=== PATIENT | female | born 1965 | race Caucasian/White ===

== ENCOUNTER 2017-06-22 07:59 | Observation (INO) | payer OTHER ==
[2017-06-22] VITALS (10 sets, daily range): BP systolic 118–163; BP diastolic 67–99; PULSE 63–82; RESP 16–21; Ht 157.5 cm; Wt 73.0 kg
[~2017-06-22] VITALS: Ht 157.5 cm; Wt 73.0 kg
[2017-06-22] MEDS: SOD CHLORIDE 0.9% 1,000 ML IV SCH ×4 (06:00→21:37)
[~2017-06-22 07:59] MED LIST: CEFAZOLIN 2 GM/50 ML (PMX) 50 ML IVPB SCH
[2017-06-22] MEDS ORDERED: OMEP20CA16 PO (09:21)
[2017-06-22] MEDS ORDERED: TIOT18CA INHALATION (09:21)
[2017-06-22] MEDS ORDERED: FERR256T PO (09:22)
[2017-06-22] MEDS ORDERED: ISOSULFAN BLUE 1% 5 ML INJ SC ONE (09:50)
[2017-06-22] MEDS ORDERED: BUPIVACAINE 0.25% (MPF) 30 ML INJ ONE ×3 (09:50→11:31)
[2017-06-22] MEDS ORDERED: FENTAnyl 50 MCG/ML VIAL ONE (09:59)
[2017-06-22] MEDS ORDERED: PROPOFOL 20 ML ONE ×2 (09:59→10:58)
[2017-06-22] MEDS ORDERED: MIDAZOLAM 1 MG/ML 2 ML INJ ONE (09:59)
[2017-06-22] MEDS ORDERED: DEXAMETHASONE 4 MG/ML 1 ML INJ ONE (09:59)
[2017-06-22] MEDS ORDERED: METOCLOPRAMIDE 10 MG INJ ONE (09:59)
[2017-06-22] MEDS ORDERED: DIPHENHYDRAMINE 50 MG INJ IV PRN (10:30)
[2017-06-22] MEDS ORDERED: OXYCODONE/ACETAMINOPHEN (5/325) TAB PO PRN ×2 (10:30)
[2017-06-22] MEDS ORDERED: HYDROmorphONE (0.2 MG/ML) 10ML SYG IV PRN ×3 (10:30)
[2017-06-22] MEDS ORDERED: METOCLOPRAMIDE 10 MG INJ IV PRN (10:30)
[2017-06-22] MEDS ORDERED: MEPERIDINE 25 MG INJ IV PRN (10:30)
[2017-06-22] MEDS ORDERED: ONDANSETRON 4 MG INJ IV PRN (10:30)
[2017-06-22] MEDS ORDERED: morphine 2 MG INJ IV PRN (12:00)
[2017-06-22] MEDS ORDERED: HYDROCODONE/APAP (5/325) TAB PO PRN (12:00)
--- NOTE | 2017-06-22 12:19 | SIPON ---
Date/Time of Note Date/Time of Note DATE: 06/22/17 TIME: 11:40 Operative Report Preoperative Diagnosis left breast cancer Postoperative Diagnosis same Operation/Procedure Performed 1. left modified radical mastectomy 2. left axillary node dissection 3. placement of left chest wall drain 4. localized adjacent tissue transfer with the use of skin flaps 34 sq cm defect 5. therapeutic injection of subcutaneous local anesthesia Surgeon see signature line regulatory assistant none Anesthesia: general Estimated blood loss: 10 - 50 ml's Transfusion Required none Specimen left breast left axillary node dissection Grafts/Implants none Complications none Cyndi GARAY Jun 22, 2017 11:52
[2017-06-22] MEDS: CEFAZOLIN 2 GM/50 ML (PMX) 50 ML IVPB SCH ×2 (13:08→20:16)
[2017-06-22 14:32] LABS: BASOPHILS % 0.2 % (0.0-2.0); HEMATOCRIT 36.7 % (37.0-47.0); HEMOGLOBIN 11.6 g/dl (12.0-16.0); LYMPHOCYTES # 0.7 10^3/ul (0.8-2.9); LYMPHOCYTES % 3.9 % (15.0-51.0); MEAN CORPUSCULAR HEMOGLOBIN 25.5 pg (29.0-33.0); MEAN CORPUSCULAR HGB CONC 31.6 g/dl (32.0-37.0); MEAN CORPUSCULAR VOLUME 80.7 fl (82.0-101.0); MONOCYTE # 0.2 10^3/ul (0.3-0.9); NEUTROPHIL # 16.5 10^3/ul (1.6-7.5); NEUTROPHILS % 94.4 % (39.0-77.0); PLATELET COUNT 318 10^3/UL (140-415); RED BLOOD COUNT 4.55 10^6/ul (4.20-5.40); RED CELL DISTRIBUTION WIDTH 20.5 % (11.5-14.5); WHITE BLOOD COUNT 17.5 10^3/ul (4.8-10.8)
[2017-06-22 14:54] LABS: ALBUMIN 4.2 g/dl (3.3-4.9); ALBUMIN/GLOBULIN RATIO 1.07; CALCIUM 8.7 mg/dl (8.4-10.2); CREATININE 0.81 mg/dl (0.44-1.00); POTASSIUM 4.4 mmol/L (3.5-5.1); TOTAL PROTEIN 8.1 g/dl (6.1-8.1)
--- NOTE | 2017-06-22 17:57 | OPR ---
DATE OF OPERATION: 06/22/2017 INDICATION: This is a 52-year-old female with left breast cancer. She had significant concern of anxiety and wants a left modified radical mastectomy. Risks, alternatives, benefits, and personnel were discussed with the patient. The patient expressed understanding and consents to the operation. PREOPERATIVE DIAGNOSIS: Left breast cancer with metastatic axillary lymph nodes. POSTOPERATIVE DIAGNOSIS: Left breast cancer with metastatic axillary lymph nodes. OPERATION PERFORMED: 1. Left modified radical mastectomy. 2. Left axillary node dissection. 3. Placement of #19 left chest wall magalis drain. 4. Localized adjacent tissue transfer with the use of skin flaps at 34 square cm defect. 5. Therapeutic injection of subcutaneous local anesthesia. SURGEON: Lisa Crabtree MD SPECIMEN: Left breast including the nipple areolar complex and left axillary lymph node. ANESTHESIA: General. ESTIMATED BLOOD LOSS: 15 mL. COMPLICATIONS: None. DESCRIPTION OF PROCEDURE: The patient was taken to the OR and prepped and draped in the usual sterile fashion. Surgical timeout was performed. IV antibiotics were given. Surgical markings were made with a marking pen in an elliptical fashion including the nipple areolar complex. A 10 blade was used to make an elliptical incision encompassing the nipple areolar complex. Superior skin flaps were raised all the way down to the chest wall. The inferior skin flaps were created all the way down to the chest wall. The breast was then resected off the pectoralis major and rest of the chest wall taking all the pectoral fascia. Surgical markings are short superior, long lateral and nipple areolar skin complex is anterior. There was good hemostasis in the surgical site. Attention was then paid to the left axilla. A 15 blade was used to make a left axillary incision. Dissection cautery was carried down to the clavipectoral fascia. The axillary node dissection was performed all the way from the axillary vein down laterally to the latissimus dorsi and medially to the serratus. Careful attention was paid to the thoracodorsal, mild thoracic nerves and kept out of harm's way. The axillary contents were matted and there were formed hard lymph nodes which made dissection very difficult. This matted area was then resected with cautery and handheld LigaSure. Hemostasis was established. Due to the large tissue defect in both sites, surgical sites were closed with localized adjacent tissue transfer with the use of skin flaps for a multilayer closure with multiple interrupted 3-0 Vicryls and running 4-0 Monocryl were used to close the 2 incisions. Subcutaneous Marcaine was injected throughout the incision sites. Dry dressings were applied. Dictated By: LISA VERA/ZEESHAN Conf#: [id number] DID#: [id number] MTDD
[2017-06-22] MEDS ORDERED: VITAMIN A & D 5 GM OINT PACKET TOP ONE (23:35)
[2017-06-23 00:15] VITALS: BP 130/78; RESP 20
[2017-06-23] MEDS: CEFAZOLIN 2 GM/50 ML (PMX) 50 ML IVPB SCH (04:23)
[2017-06-23 05:30] VITALS: BP 124/72; PULSE 62; RESP 18
[2017-06-23 05:30] LABS: BASOPHILS % 0.2 % (0.0-2.0); EOSINOPHILS % 0.2 % (0.0-7.0); HEMATOCRIT 32.6 % (37.0-47.0); HEMOGLOBIN 10.2 g/dl (12.0-16.0); LYMPHOCYTES # 2.1 10^3/ul (0.8-2.9); LYMPHOCYTES % 15.6 % (15.0-51.0); MEAN CORPUSCULAR HEMOGLOBIN 25.1 pg (29.0-33.0); MEAN CORPUSCULAR HGB CONC 31.3 g/dl (32.0-37.0); MEAN CORPUSCULAR VOLUME 80.1 fl (82.0-101.0); MEAN PLATELET VOLUME 10.3 fl (7.4-10.4); MONOCYTE # 1.2 10^3/ul (0.3-0.9); MONOCYTES % 9.1 % (0.0-11.0); NEUTROPHIL # 9.9 10^3/ul (1.6-7.5); NEUTROPHILS % 74.6 % (39.0-77.0); PLATELET COUNT 289 10^3/UL (140-415); RED BLOOD COUNT 4.07 10^6/ul (4.20-5.40); RED CELL DISTRIBUTION WIDTH 20.6 % (11.5-14.5); WHITE BLOOD COUNT 13.3 10^3/ul (4.8-10.8)
[2017-06-23] MEDS: SOD CHLORIDE 0.9% 1,000 ML IV SCH (05:41)
[2017-06-23 05:51] LABS: ALBUMIN 3.4 g/dl (3.3-4.9); BILIRUBIN,INDIRECT 0.1 mg/dl (0-1.1); BILIRUBIN,TOTAL 0.1 mg/dl (0.2-1.3); CALCIUM 8.4 mg/dl (8.4-10.2); CREATININE 0.75 mg/dl (0.44-1.00); POTASSIUM 3.5 mmol/L (3.5-5.1); TOTAL PROTEIN 6.8 g/dl (6.1-8.1)
[2017-06-23 08:47] VITALS: BP 127/76; RESP 16
--- NOTE | 2017-06-23 11:50 | HP ---
DATE OF ADMISSION: 06/22/2017 HISTORY OF PRESENT ILLNESS: The patient is a 52-year-old female with past medical history of iron d eficiency anemia and gastroesophageal reflux disease. Patient was diagnosed with left breast cancer , was evaluated by Dr. Crabtree in general surgery consultation. Patient was brought to the hospital and underwent left modified radical mastectomy and left axillary node dissection. the patient ex perienced moderate pain, and patient will be admitted for further evaluation and management. PAST MEDICAL HISTORY: Positive for GERD, anemia and uterine fibroids. FAMILY HISTORY: Negative for any history of breast cancer. PAST SURGICAL HISTORY: The patient denies any recent surgical history. ALLERGIES: THE PATIENT IS ALLERGIC TO LATEX. MEDICATIONS ON ADMISSION: Include: 1. Ferrous sulfate. 2. Omeprazole. REVIEW OF SYSTEMS: A 12-point review of systems is negative unless what mentioned in the HPI. PHYSICAL ASSESSMENT: GENERAL: Well-developed, well-nourished female in no acute distress. VITAL SIGNS: Temperature 97.6, pulse is 63, blood pressure was 130/74, respiratory rate 18, oxygen saturation 97% on room air. HEENT: Head is atraumatic, normocephalic. Pupils equal, round, reactive to light and accommodation . Oral mucosa is pink and moist. NECK: Supple, no cervical lymphadenopathy, no thyromegaly. CHEST: Lungs clear bilaterally. There is no rhonchi, wheezes or chills noted. CARDIOVASCULAR: Normal S1, S2. No murmurs, gallops, clicks, rubs noted. The patient has a chest d ressing with 2 left axillary JPs. ABDOMEN: Round, soft, nondistended, nontender. Bowel sounds present. EXTREMITIES: No edema, clubbing, cyanosis. Pulses equal bilaterally 2+. SKIN: There is no rash, petechiae noted. NEUROLOGIC: The patient is awake, alert and oriented x4. No focal deficits noted. LABORATORY DATA: Prior to surgery, CMP glucose 74. Sodium 139, potassium 4.1, chloride 105, carbon dioxide 28, BUN is 14, creatinine 0.6. CBC: White blood cells 7.0, hemoglobin 11.2, hematocrit 36 .1, platelets 337. INR is 1.0. PT 10.4. ASSESSMENT AND PLAN: 1. Invasive cancer of the left breast status post left modified radical mastectomy and left axillar y node dissection. 2. Iron deficiency anemia. 3. Gastroesophageal reflux disease. PLAN: Admit the patient to medical/surgical floor. Continue Tylenol and morphine p.r.n. for pain, Zofran p.r.n. for nausea, continue postoperative antibiotics and IV fluids, advance diet as patient tolerates, sequential compression devices for deep venous thrombosis prophylaxis. CBC and BMP tomor row. Further recommendations based on clinical course. Plan of care discussed with Dr. García. Dictated By: FITO COOK FINANCIAL SECRETARY for BETSY GARCÍA MD SR/NTS Conf#: [id number] DID#: [id number]
[2017-06-23 14:02] VITALS: BP 122/69; RESP 17
--- NOTE | 2017-06-23 14:23 | PDOCDIS ---
Discharge Instructions CONDITION Patient Condition: Stable HOME CARE INSTRUCTIONS: Diet Instructions: RegularSpecial Diet: regular ACTIVITY: Activity Restrictions: Slowly Increase Activity Rest between Activity Avoid heavy lifting Do not Drive Do not operate Machinery Do not operate Power Tool Avoid Heavy Housework FOLLOW UP/APPOINTMENTS Follow-up Plan FU with PMD X 1 week FU [facility] surgery as recommended Call 911 or go to the nearest hospital if symptoms get worse- patien vebalized understanding dc indurations Plan of william García/staff. MATTEO SHAFER Jun 23, 2017 14:23
--- NOTE | 2017-06-23 14:27 | DS ---
Date/Time of Note Date/Time of Note DATE: 06/23/17 TIME: 14:27 Discharge Summary Admission/Discharge Info Admit Date/Time Jun 22, 2017 at 11:39 Discharge Date/Time Discharge Diagnosis 1. Invasive cancer of the left breast 2. Status post left modified radical mastectomy and left axillary node dissection. 3. Iron deficiency anemia. 4. Gastroesophageal reflux disease. Patient Condition: Stable Hospital Course The patient is a 52-year-old female with past medical history of iron deficiency anemia, gastroesophageal reflux disease. Patient was diagnosed with left breast cancer. Patient was admitted sp left modified radical mastectomy and left axillary node dissection by Dr Crabtree. The patient has c/o post op pain and was admitted for further evaluation and management under Dr navarrete.Patient pain was controlled, got stable and cleared by surgery to go home. Plan dw Dr Navarrete Home Meds Reported Medications Ferrous Gluconate (Iron) 256 Mg Tablet, 256 MG PO DAILY, TAB 06/22/17 Omeprazole* (Omeprazole*) 20 Mg Capsule., 20 MG PO DAILY, #30 CAP 06/22/17 Follow-up Plan FU with PMD X 1 week FU [facility] surgery as recommended Call 911 or go to the nearest hospital if symptoms get worse- patien vebalized understanding dc indurations Plan of cssre socorro Navarrete/staff. Primary Care Provider Chuck Christine Pending Labs Laboratory Tests Test 06/23/17 04:28 06/23/17 04:34 White Blood Count 13.310^3/ul (4.8-10.8) Red Blood Count 4.0710^6/ul (4.20-5.40) Hemoglobin 10.2g/dl (12.0-16.0) Hematocrit 32.6% (37.0-47.0) Mean Corpuscular Volume 80.1fl (82.0-101.0) Mean Corpuscular Hemoglobin 25.1pg (29.0-33.0) Mean Corpuscular Hemoglobin Concent 31.3g/dl (32.0-37.0) Red Cell Distribution Width 20.6% (11.5-14.5) Platelet Count 29727^3/UL (140-415) Mean Platelet Volume 10.3fl (7.4-10.4) Neutrophils % 74.6% (39.0-77.0) Lymphocytes % 15.6% (15.0-51.0) Monocytes % 9.1% (0.0-11.0) Eosinophils % 0.2% (0.0-7.0) Basophils % 0.2% (0.0-2.0) Nucleated Red Blood Cells % 0.0/100WBC (0.0-0.0) Neutrophils # 9.910^3/ul (1.6-7.5) Lymphocytes # 2.110^3/ul (0.8-2.9) Monocytes # 1.210^3/ul (0.3-0.9) Eosinophils # 0.010^3/ul (0.0-0.5) Basophils # 0.010^3/ul (0.0-0.1) Nucleated Red Blood Cells # 0.010^3/ul (0.0-0.0) Sodium Level 142mmol/L (135-144) Potassium Level 3.5mmol/L (3.5-5.1) Chloride Level 109mmol/L (97-110) Carbon Dioxide Level 25mmol/L (21-31) Anion Gap 12 (8-16) Blood Urea Nitrogen 11mg/dl (7-20) Creatinine 0.75mg/dl (0.44-1.00) Glucose Level 87mg/dl (70-220) Calcium Level 8.4mg/dl (8.4-10.2) Total Bilirubin 0.1mg/dl (0.2-1.3) Direct Bilirubin 0.00mg/dl (0.00-0.20) Indirect Bilirubin 0.1mg/dl (0-1.1) Aspartate Amino Transf (AST/SGOT) 21IU/L (15-46) Alanine Aminotransferase (ALT/SGPT) 30IU/L (13-69) Alkaline Phosphatase 66IU/L (42-121) Total Protein 6.8g/dl (6.1-8.1) Albumin 3.4g/dl (3.3-4.9) Globulin 3.40g/dl (1.3-3.2) Albumin/Globulin Ratio 1.00 MATTEO SHAFER Jun 23, 2017 14:27
--- NOTE | 2017-06-25 06:51 | PN ---
DATE: 06/23/2017 SUBJECTIVE: Mild pain in left chest wall post-operation. Has tolerated diet. OBJECTIVE: VITAL SIGNS: Temperature 98.3, heart rate 69, respirations 16, blood pressure 127/76, s aturation 99% on room air. LABORATORY DATA: Sodium, potassium, BUN, creatinine within normal limits. Hematology: WBC which w as 17,500 yesterday, has dropped to 15,300, it was 94% neutrophils and now has dropped to normal 74% , hemoglobin 10.2, hematocrit 32.6. There is a Samson drain which in the past 24 hours has drained 100 mL of fluid, which is serosanguine ous in nature. Dressing is intact. The patient can move left arm easily. ASSESSMENT AND PLAN: A 52-year-old female who is status post left modified radical mastectomy with axillary dissection. Vital signs are stable. Labs are stable. The patient can move her left arm a nd left hand easily. The drainage is serosanguineous. The patient was given instruction how to duglas e care of Samson drain, how to empty that and how to measure the drainage. The patient should be dis charged home today. Follow up by Dr. Crabtree in his office. Dictated By: SITA MARINA MD PS/NTS Conf#: [id number] DID#: [id number] CC: BETSY SIMS MD;*EndCC*
== END 2017-06-23 15:10 | disposition home or self-care (01) ==
LOC: EDSEX 07:59 → SDS 07:59 → MS1 11:39
PROVIDERS: ADMIT Internal Medicine; ATTEND Surgery
DX: C50.412 Malignant neoplasm of upper-outer quadrant of left female breast (principal); C77.3 Secondary and unspecified malignant neoplasm of axilla and upper limb lymph nodes; K21.9 Gastro-esophageal reflux disease without esophagitis; D50.9 Iron deficiency anemia, unspecified; D25.9 Leiomyoma of uterus, unspecified; F41.9 Anxiety disorder, unspecified; I10 Essential (primary) hypertension
CPT/HCPCS: 14301; 19307; 80053; 85025; 88307; J0690; J1100; J2250; J2765; J3010; J7030; Z7500; Z7512; Z7610; G0378; Q9968

== ENCOUNTER → 2017-08-06 | Outpatient (CLI) | payer OTHER ==
[~2017-08-06] MED LIST changes: -CEFAZOLIN 2 GM/50 ML (PMX) 50 ML IVPB SCH; +FERR256T PO; +OMEP20CA16 PO
--- NOTE | 2017-08-06 13:46 | RADRPT ---
Echocardiogram Report Patient Name: HARITHA BUSBY Gender: Female Date: 1965 Study Date: 06-Aug-2017 [employer]: Estefania Crowell RDCS Location: EKG Ref. Physician: EL SALEEM Quality: Good Procedures: Transthoracic echocardiogram with complete 2D, M-Mode, and doppler examination. Indications: breast cancer. 2D/M Mode Doppler Measurement Value Normal Ranges Measurement Value Normal Ranges LVIDd 2D 4.5 3.5 - 5.6 cm AV Peak William 1.4 m/sec LVIDs 2D 2.3 2.1 - 4.1 cm AV Peak PG 7.6 mmHg LVPWd 2D 0.9 0.6 - 1.1 cm LVOT Peak William 1.1 m/sec IVSd 2D 1.1 0.6 - 1.1 cm LVOT Peak PG 5.2 mmHg AoR Diam 2D 2.7 2.0 - 3.7 cm MV E Peak William 0.9 m/sec EDV 2D 94.8 cm3 MV A Peak William 0.8 m/sec ESV 2D 12.5 cm3 MV E/A 1.1 LA Dimen 2D 3.4 2.3 - 4.0 cm MV Decel Time 159 msec MV Decel [place] 6 MV E/A 1.1 TR Peak William 2.0 m/sec TR Peak PG 16.6 mmHg RVSP 20.0 mmHg Findings Left Ventricle: Normal left ventricular systolic function. Normal left ventricular cavity size. Normal left ventricular wall thickness. Ejection fraction is visually estimated at 65 %. Tissue Doppler/Mitral Doppler indices are within normal limits. Right Ventricle: Normal right ventricular size. Normal right ventricular systolic function. Left Atrium: The left atrium is normal in size. Right Atrium: The right atrium is normal in size. Mitral Valve: Normal appearance of the mitral valve. Normal appearance and function of the mitral valve with trace physiologic regurgitation. Aortic Valve: Normal appearance of the aortic valve. No significant aortic stenosis or insufficiency. Tricuspid Valve: Normal appearance of the tricuspid valve. Estimated peak PA systolic pressure 20 mmHg. There is trace tricuspid regurgitation. Pulmonic Valve: Normal pulmonic valve appearance. Pericardium: Trivial pericardial effusion. Aorta: Normal aortic root. IVC: Normal size and normal respiratory collapse consistent with normal right atrial pressure. Conclusions 1.Normal left ventricular systolic function. Normal left ventricular cavity size. Normal left ventricular wall thickness. Ejection fraction is visually estimated at 65 %. Tissue Doppler/Mitral Doppler indices are within normal limits. 2.No significant valvular stenosis or regurgitation seen. 3.Trivial pericardial effusion. 4.Estimated peak PA systolic pressure 20 mmHg based on RA pressure of 3 mmHg. Electronically Signed By: Louis Malloy 06-Aug-2017 13:45:59 -0800 Patient Name: HARITHA BUSBY Study Date: 06-Aug-2017 [id number]
== END | disposition home or self-care (01) ==
LOC: EKG 08:42
PROVIDERS: ATTEND Internal Medicine Hematology & Oncology
DX: C50.919 Malignant neoplasm of unspecified site of unspecified female breast (principal)
CPT/HCPCS: 93306

== ENCOUNTER 2017-09-21 06:48 | Day surgery (SDC) | END 2017-09-21 13:50 | disposition home or self-care (01) ==